=== PATIENT | female | born 1950 | race Caucasian/White ===

== ENCOUNTER → 2019-04-22 | Outpatient (CLI) | payer MEDICARE, OTHER | END | disposition home or self-care (01) | LOC: CFH 10:03 | PROVIDERS: ATTEND Nurse Practitioner | DX: Z13.820 Encounter for screening for osteoporosis (principal); N95.8 Other specified menopausal and perimenopausal disorders | CPT/HCPCS: 77080 ==

== ENCOUNTER 2020-01-14 09:44 | Emergency (ER) | payer MEDICARE, OTHER ==
[~2020-01-14] VITALS: Ht 152.4 cm; Wt 71.2 kg
--- NOTE | 2020-01-14 10:28 | NUR ---
TASK RN. PT AND PT'S STATES PT WITH INCREASING HALLUCONATIONS, WORSE AT NIGHT, X3 MONTHS. PT ALSO STATES WORSENING FORGETFULLNESS WELL. PT DENIES ANY N/T, WEAKNESS. CURRENTLY, PT A&OX4, ABLE TO FOLLOW ALL COMMANDS AND ANSWERS QUESTIONS APPROPRIATELY. JENNIFER RESIDENT AT BEDSIDE FOR ASSESSMENT.
--- NOTE | 2020-01-14 11:02 | NUR ---
RECEIVED REPORT FROM SHOSHANA Mccoy RN. PT TO GET MRI AND LABS.
[2020-01-14 11:15] LABS: MICROSCOPIC INDICATED
[2020-01-14 11:22] LABS: BASOPHILS # (AUTO) 0.04 x10^3/uL (0-0.1); BASOPHILS % (AUTO) 1 % (0-1); EOSINOPHILS # (AUTO) 0.12 x10^3/uL (0-0.4); EOSINOPHILS % (AUTO) 1 % (1-7); LYMPHOCYTES # (AUTO) 1.41 x10^3/uL (1-3.4); LYMPHOCYTES % (AUTO) 16 % (22-44); MD NO; MEAN CORPUSCULAR HGB CONC 33.1 g/dL (32.4-35.8); MEAN PLATELET VOLUME 9.4 fL (7.4-10.4); MONOCYTES # (AUTO) 0.73 x10^3/uL (0.2-0.8); MONOCYTES % (AUTO) 9 % (2-9); NEUTROPHILS # (AUTO) 6.34 x10^3/uL (1.8-6.8); NEUTROPHILS % (AUTO) 73 % (42-75); PLATELET COUNT 210 x10^3/uL (130-400); RED BLOOD COUNT 4.84 x10^6/uL (3.82-5.3)
--- NOTE | 2020-01-14 11:28 | NUR ---
PT IN MRI.
[2020-01-14 11:32] LABS: ALANINE AMINOTRANSFERASE 57 U/L (12-78); ALBUMIN 3.3 g/dL (3.4-5.0); ANION GAP 7 mmol/L (5-15); CALCIUM 11.6 mg/dL (8.5-10.1); CHLORIDE 103 mmol/L (98-107)
[2020-01-14 11:34] LABS: ALKALINE PHOSPHATASE 132 U/L (45-117); BILIRUBIN,TOTAL 0.5 mg/dL (0.2-1.0); CREATININE 0.94 mg/dL (0.55-1.02); TOTAL PROTEIN 7.9 g/dL (6.4-8.2)
[2020-01-14] MEDS ORDERED: GADOTERATE 7.5 MMOL/15 ML SYR ONE (11:44)
[2020-01-14] MEDS ORDERED: POTASSIUM CHLORIDE 20 MEQ TAB.ER.PRT PO ONE (12:30)
[2020-01-14] MEDS ORDERED: POTASSIUM CHLORIDE 20 MEQ TAB.ER.PRT ONE (12:33)
[2020-01-14 13:44] VITALS: BP 143/85
== END 2020-01-14 13:46 | disposition home or self-care (01) ==
LOC: ED 10:42
DX: R44.0 Auditory hallucinations (principal); R44.1 Visual hallucinations; I10 Essential (primary) hypertension
CPT/HCPCS: 36415; 70553; 80053; 81001; 85025; 87086; 99284; A9575

== ENCOUNTER 2020-03-16 09:26 | Observation (INO) | payer MEDICARE, OTHER ==
[~2020-03-16] VITALS: Ht 152.4 cm; Wt 67.2 kg
[2020-03-16] MEDS ORDERED: SODIUM CHLORIDE FLUSH 10ML SYR IVF ONE (10:00)
--- NOTE | 2020-03-16 10:08 | NUR ---
PT HAS MULTIPLE COMPLAINTS. INCREASED WEAKNESS, UNABLE TO EAT MUCH. INCREASED OXYGEN USE AT HOME W ACTIVITY. DENIES CP AT THIS TIME. PT IS SUPPOSED TO GET EGD AND COLONSCOPY, FAMILY MEMBER STATES SHE NEEDS ONE SOONER TO FIND OUT WHAT IS GOING ON.
[2020-03-16 10:39] LABS: BASOPHILS # (AUTO) 0.03 x10^3/uL (0-0.1); BASOPHILS % (AUTO) 0 % (0-1); EOSINOPHILS # (AUTO) 0.14 x10^3/uL (0-0.4); EOSINOPHILS % (AUTO) 2 % (1-7); LYMPHOCYTES # (AUTO) 1.64 x10^3/uL (1-3.4); LYMPHOCYTES % (AUTO) 26 % (22-44); MD NO; MEAN CORPUSCULAR HEMOGLOBIN 31.1 pg (27.0-34.8); MEAN PLATELET VOLUME 9.3 fL (7.4-10.4); MONOCYTES # (AUTO) 0.49 x10^3/uL (0.2-0.8); MONOCYTES % (AUTO) 8 % (2-9); NEUTROPHILS # (AUTO) 3.93 x10^3/uL (1.8-6.8); NEUTROPHILS % (AUTO) 63 % (42-75); PLATELET COUNT 205 x10^3/uL (130-400); RED BLOOD COUNT 4.54 x10^6/uL (3.82-5.3); RED CELL DISTRIBUTION WIDTH 14.8 % (9.6-15.2)
[2020-03-16 10:46] LABS: ALANINE AMINOTRANSFERASE 29 U/L (12-78); ALBUMIN 3.2 g/dL (3.4-5.0); ANION GAP 8 mmol/L (5-15); CALCIUM 11.7 mg/dL (8.5-10.1); CHLORIDE 109 mmol/L (98-107); CREATININE 0.96 mg/dL (0.55-1.02)
[2020-03-16 10:48] LABS: ALKALINE PHOSPHATASE 111 U/L (45-117); BILIRUBIN,TOTAL 1.1 mg/dL (0.2-1.0); TOTAL PROTEIN 7.8 g/dL (6.4-8.2)
--- NOTE | 2020-03-16 11:14 | NUR ---
PT RESTING, VSS
--- NOTE | 2020-03-16 12:08 | NUR ---
PT NOT IN DISTRES, SITTING COMFORTABLE, PLAN FOR ADMIT
[2020-03-16] MEDS ORDERED: ACETAMINOPHEN 325 MG TABLET PO PRN (12:30)
[2020-03-16] MEDS ORDERED: METOCLOPRAMIDE 5 MG/ML, 2ML IVPush PRN (12:30)
[2020-03-16] MEDS ORDERED: OMEPRAZOLE 20 MG CAPSULE.DR PO ONE (12:30)
[2020-03-16] MEDS ORDERED: ONDANSETRON 2MG/ML, 2ML IVPush PRN (12:30)
[2020-03-16] MEDS ORDERED: MELATONIN 5 MG TABLET PO PRN (12:30)
[2020-03-16] MEDS ORDERED: HYDR25TA6 PO (12:39)
[2020-03-16] MEDS ORDERED: PARO30TA45 PO (12:39)
[2020-03-16] MEDS: POTASSIUM CHLORIDE 40 MEQ in LACTATED RINGERS 1,000 ML IV SCH ×2 (13:00→23:13)
--- NOTE | 2020-03-16 14:05 | NUR ---
PT RESTING, VSS. GIVEN WATER. CLEAR LIQUID DIET PER ORDERS,
--- NOTE | 2020-03-16 14:35 | NUR ---
PT AMBULATED TO BATHROOM W STEADY GAIT
--- NOTE | 2020-03-16 14:56 | NUR ---
PT RA SAT AFTER AMBULATING 73. 2L APPLIED, NOW 92
--- NOTE | 2020-03-16 15:50 | NUR ---
ASSUMING CARE OF PT. PT ASLEEP IN BED, NAD NOTED AT THIS TIME. RESPIRATIONS EVEN AND UNLABORED SATURATING WELL. AWAITING ADMISSION BED. CALL MADE FOR HOSPITAL BED.
--- NOTE | 2020-03-16 16:32 | NUR ---
FIRST ATTEMPT TO CALL REPORT.
--- NOTE | 2020-03-16 16:56 | NUR ---
SECOND CALL TO TELE2 FOR REPORT.
[2020-03-16] MEDS ORDERED: OMEPRAZOLE 20 MG CAPSULE.DR ONE (19:56)
[2020-03-16 21:20] VITALS: BP 181/71
[2020-03-16] MEDS: ENALAPRILAT 1.25 MG/ML, 2ML IV PRN (22:23)
[2020-03-16 23:13] VITALS: BP 169/78
[2020-03-17 01:47] VITALS: BP 176/69
[2020-03-17 02:35] VITALS: BP 184/77
[2020-03-17] MEDS: ENALAPRILAT 1.25 MG/ML, 2ML IV PRN ×2 (02:38→07:21)
[2020-03-17 03:12] VITALS: BP 176/83
[2020-03-17 03:21] VITALS: BP 164/73
[2020-03-17 06:01] LABS: BASOPHILS # (AUTO) 0.03 x10^3/uL (0-0.1); BASOPHILS % (AUTO) 0 % (0-1); EOSINOPHILS # (AUTO) 0.24 x10^3/uL (0-0.4); EOSINOPHILS % (AUTO) 3 % (1-7); LYMPHOCYTES # (AUTO) 2.23 x10^3/uL (1-3.4); LYMPHOCYTES % (AUTO) 24 % (22-44); MD NO; MEAN CORPUSCULAR HEMOGLOBIN 30.8 pg (27.0-34.8); MEAN PLATELET VOLUME 9.6 fL (7.4-10.4); MONOCYTES # (AUTO) 0.95 x10^3/uL (0.2-0.8); MONOCYTES % (AUTO) 10 % (2-9); NEUTROPHILS # (AUTO) 5.99 x10^3/uL (1.8-6.8); NEUTROPHILS % (AUTO) 64 % (42-75); PLATELET COUNT 199 x10^3/uL (130-400); RED BLOOD COUNT 4.13 x10^6/uL (3.82-5.3)
[2020-03-17 06:25] LABS: ALBUMIN 2.9 g/dL (3.4-5.0); ANION GAP 7 mmol/L (5-15); CALCIUM 10.9 mg/dL (8.5-10.1); CHLORIDE 111 mmol/L (98-107)
[2020-03-17 06:29] LABS: ALANINE AMINOTRANSFERASE 28 U/L (12-78); ALKALINE PHOSPHATASE 98 U/L (45-117); BILIRUBIN,TOTAL 1.1 mg/dL (0.2-1.0); CREATININE 0.83 mg/dL (0.55-1.02); TOTAL PROTEIN 7.1 g/dL (6.4-8.2)
[2020-03-17 07:01] VITALS: BP 171/78
[2020-03-17 07:43] VITALS: BP 166/74
[2020-03-17] MEDS ORDERED: CHLORHEXIDINE 15 ML UDC ONE (08:39)
[2020-03-17] MEDS ORDERED: POTA20TA14 PO (08:53)
[2020-03-17] MEDS ORDERED: CHLORHEXIDINE 15 ML UDC MM STA (08:55)
[2020-03-17] MEDS ORDERED: PROPOFOL 10 MG/ML, 20ML ONE (09:00)
[2020-03-17] MEDS ORDERED: FENTANYL PF 100 MCG/2ML ONE (09:00)
[2020-03-17] MEDS ORDERED: PAROXETINE 10 MG TABLET PO SCH (09:00)
[2020-03-17] MEDS ORDERED: MIDAZOLAM 1 MG/ML, 2ML ONE (09:00)
[2020-03-17] MEDS ORDERED: POTASSIUM CHLORIDE 40 MEQ in SODIUM CHLORIDE 0.9% 500 ML IV ONE (09:00)
[2020-03-17] MEDS ORDERED: MEPERIDINE/PF 25MG/0.5ML IVPush PRN (09:30)
[2020-03-17] MEDS ORDERED: PROMETHAZINE 25 MG/ML, 1ML IVPush PRN (09:30)
[2020-03-17] MEDS ORDERED: ONDANSETRON 2MG/ML, 2ML IVPush PRN (09:30)
[2020-03-17] MEDS ORDERED: FENTANYL PF 100 MCG/2ML IV PRN (09:30)
[2020-03-17] MEDS ORDERED: OXYcodone 5 MG/5 ML ORAL.SOL UDC PO PRN (09:30)
[2020-03-17] MEDS ORDERED: HYDROmorphone 1 MG/ML, 1ML INJ IVPush PRN (09:30)
[2020-03-17] MEDS ORDERED: OMEP20TA62 PO (10:16)
[2020-03-17] MEDS ORDERED: EPHEDRINE 50 MG/ML, 1ML ONE (11:21)
[2020-03-17] MEDS ORDERED: ONDANSETRON 2MG/ML, 2ML ONE (11:21)
== END 2020-03-17 15:00 | disposition home or self-care (01) ==
LOC: ED 09:42 → SUATTDRO 12:12 → EDIP 12:20 → 4WST 17:51 → DCLOUNGE 03-17 14:54
PROVIDERS: ADMIT Internal Medicine; ATTEND Hospitalist
DX: K29.70 Gastritis, unspecified, without bleeding (principal); Z20.828 Contact with and (suspected) exposure to other viral communicable diseases; K57.30 Diverticulosis of large intestine without perforation or abscess without bleeding; R11.2 Nausea with vomiting, unspecified; K44.9 Diaphragmatic hernia without obstruction or gangrene; K22.2 Esophageal obstruction; E87.6 Hypokalemia; I10 Essential (primary) hypertension; J84.10 Pulmonary fibrosis, unspecified; Z87.01 Personal history of pneumonia (recurrent)
CPT/HCPCS: 36415; 43239; 71045; 80053; 82378; 83690; 83735; 84100; 84443; 85025; 86301; 87635; 88305; 88312; 93005; 96365; 96366; 96375; 96376; 99284; G0378; J2250; J2405; J2704; J3010; J3480; J7040; J7120

== ENCOUNTER → 2020-04-28 | Outpatient (CLI) | payer MEDICARE, OTHER ==
[~2020-04-28] MED LIST: HYDR25TA6 PO; OMEP20TA62 PO; PARO30TA45 PO; POTA20TA14 PO
== END | disposition home or self-care (01) ==
LOC: CARD 12:39
PROVIDERS: ATTEND Nurse Practitioner Family
DX: R41.3 Other amnesia (principal); R44.0 Auditory hallucinations; R44.1 Visual hallucinations
CPT/HCPCS: 95819

== ENCOUNTER 2020-10-01 16:54 | Inpatient (IN) | payer MEDICARE, OTHER ==
[~2020-10-01] VITALS: Ht 152.4 cm; Wt 48.9 kg
--- NOTE | 2020-10-01 17:15 | NUR ---
ERPA AT BEDSIDE FOR EVALUATION.
--- NOTE | 2020-10-01 17:48 | NUR ---
CC OFCOUGH FOR ABOUT 2 WEEKS AND PASSING OUT EPISODES THAT HAS BEEN GOING ON FOR MONTHS. C/O NAUSEA, LOSING WEIGHT AND DECREASED APPETITE. FOLLOWED BY NEURO. AT BEDSIDE.
[2020-10-01 17:56] LABS: BASOPHILS % (AUTO) 1 % (0-1); EOSINOPHILS % (AUTO) 2 % (1-7); LYMPHOCYTES % (AUTO) 24 % (22-44); MEAN CORPUSCULAR HEMOGLOBIN 31.6 pg (27.0-34.8); MEAN CORPUSCULAR HGB CONC 33.1 g/dL (32.4-35.8); MEAN PLATELET VOLUME 9.2 fL (7.4-10.4); MONOCYTES % (AUTO) 11 % (2-9); NEUTROPHILS % (AUTO) 63 % (42-75); PLATELET COUNT 243 x10^3/uL (130-400); RED BLOOD COUNT 3.88 x10^6/uL (3.82-5.3); RED CELL DISTRIBUTION WIDTH 13.7 % (9.6-15.2)
[2020-10-01 18:01] LABS: MD NO
[2020-10-01 18:15] LABS: ALANINE AMINOTRANSFERASE 24 U/L (12-78); ANION GAP 5 mmol/L (5-15); CALCIUM 13.3 mg/dL (8.5-10.1); CHLORIDE 109 mmol/L (98-107); CREATININE 0.96 mg/dL (0.55-1.02)
[2020-10-01 18:18] LABS: ALKALINE PHOSPHATASE 105 U/L (45-117); BILIRUBIN,TOTAL 0.7 mg/dL (0.2-1.0); TOTAL PROTEIN 7.7 g/dL (6.4-8.2); TROPONIN I 0.043 ng/mL (0.000-0.045)
[2020-10-01 18:34] LABS: MICROSCOPIC AUTO
[2020-10-01] MEDS ORDERED: CEFTRIAXONE PMX 1GM/50ML 50 ML IVPB ONE (19:00)
[2020-10-01] MEDS ORDERED: SODIUM CHLORIDE 0.9% 1,000 ML IV ONE (19:00)
[2020-10-01] MEDS ORDERED: AZITHROMYCIN 500 MG in SODIUM CHLORIDE 0.9% 250 ML IVPB ONE (19:00)
[2020-10-01] MEDS ORDERED: CEFTRIAXONE PMX 1GM/50ML 50 ML ONE (19:14)
[2020-10-01] MEDS ORDERED: POLYETHYLENE GLYCOL 17 GM PACKET PO PRN (20:00)
[2020-10-01] MEDS ORDERED: ONDANSETRON ODT 4 MG PO PRN (20:00)
[2020-10-01] MEDS ORDERED: BISACODYL 10 MG SUPP PR PRN (20:00)
[2020-10-01] MEDS ORDERED: ACETAMINOPHEN 325 MG TABLET PO PRN (20:00)
--- NOTE | 2020-10-01 20:05 | NUR ---
LEFT, TOOK PTS HOME OXYGEN WITH HIM.
--- NOTE | 2020-10-01 20:09 | NUR ---
REPORT GIVEN TO SUMI GUNN
[2020-10-01 21:02] VITALS: BP 127/76
[2020-10-01] MEDS: CEFTRIAXONE PMX 1GM/50ML 50 ML IV SCH (21:10)
[2020-10-01] MEDS: HEPARIN 5,000 UNITS/ML, 1ML SQ SCH (21:25)
[2020-10-01] MEDS: SODIUM CHLORIDE 0.9% 1,000 ML IV SCH (23:01)
[2020-10-02 01:47] VITALS: BP 132/69
[2020-10-02] MEDS: HEPARIN 5,000 UNITS/ML, 1ML SQ SCH ×3 (05:36→21:22)
[2020-10-02] MEDS: OMEPRAZOLE 20 MG CAPSULE.DR PO SCH (05:36)
[2020-10-02 06:53] LABS: ANION GAP 7 mmol/L (5-15); CALCIUM 11.8 mg/dL (8.5-10.1); CHLORIDE 111 mmol/L (98-107); CREATININE 0.81 mg/dL (0.55-1.02)
[2020-10-02 08:40] VITALS: BP 104/59
[2020-10-02] MEDS: SENNA/DOCUSATE TABLET PO SCH (09:00)
[2020-10-02] MEDS ORDERED: PAROXETINE 20 MG TABLET ONE (09:19)
[2020-10-02] MEDS: HYDROCHLOROTHIAZIDE 25 MG TABLET PO SCH (09:24)
[2020-10-02] MEDS: POTASSIUM CHLORIDE 20 MEQ TAB.ER.PRT PO SCH (09:25)
[2020-10-02] MEDS: SODIUM CHLORIDE 0.9% 1,000 ML IV SCH ×2 (09:26→18:56)
[2020-10-02] MEDS: PAROXETINE 10 MG TABLET PO SCH (09:37)
[2020-10-02 12:48] VITALS: BP 128/65
[2020-10-02 19:51] VITALS: BP 158/80
[2020-10-02] MEDS: CEFTRIAXONE PMX 1GM/50ML 50 ML IV SCH (19:53)
[2020-10-02] MEDS ORDERED: AZITHROMYCIN 500 MG in SODIUM CHLORIDE 0.9% 250 ML IV SCH (20:00)
[2020-10-03 01:22] VITALS: BP 175/74
[2020-10-03 01:41] VITALS: BP 142/71
[2020-10-03] MEDS: HEPARIN 5,000 UNITS/ML, 1ML SQ SCH (05:42)
[2020-10-03] MEDS: OMEPRAZOLE 20 MG CAPSULE.DR PO SCH (05:42)
[2020-10-03 05:43] LABS: BASOPHILS % (AUTO) 1 % (0-1); EOSINOPHILS % (AUTO) 2 % (1-7); LYMPHOCYTES % (AUTO) 26 % (22-44); MEAN CORPUSCULAR HEMOGLOBIN 31.4 pg (27.0-34.8); MEAN CORPUSCULAR HGB CONC 33.4 g/dL (32.4-35.8); MONOCYTES % (AUTO) 9 % (2-9); NEUTROPHILS % (AUTO) 63 % (42-75); PLATELET COUNT 208 x10^3/uL (130-400); RED CELL DISTRIBUTION WIDTH 13.4 % (9.6-15.2)
[2020-10-03] MEDS: SODIUM CHLORIDE 0.9% 1,000 ML IV SCH (05:43)
[2020-10-03 05:50] LABS: MD NO
[2020-10-03 05:52] LABS: ANION GAP 7 mmol/L (5-15); CALCIUM 10.9 mg/dL (8.5-10.1); CHLORIDE 108 mmol/L (98-107)
[2020-10-03 05:54] LABS: CREATININE 0.64 mg/dL (0.55-1.02)
[2020-10-03] MEDS ORDERED: AZIT500T10 PO (07:03)
[2020-10-03 07:44] VITALS: BP 132/76
[2020-10-03] MEDS: POTASSIUM CHLORIDE 20 MEQ TAB.ER.PRT PO SCH (08:03)
[2020-10-03] MEDS: HYDROCHLOROTHIAZIDE 25 MG TABLET PO SCH (08:03)
[2020-10-03] MEDS: SENNA/DOCUSATE TABLET PO SCH (08:04)
[2020-10-03] MEDS: PAROXETINE 10 MG TABLET PO SCH (08:04)
== END 2020-10-03 11:08 | disposition home or self-care (01) | DRG 689 ==
LOC: ED 18:40 → EDIP 19:45 → 3N 20:25 → DCLOUNGE 10-03 11:00
PROVIDERS: ADMIT Family Medicine; ATTEND Hospitalist
PROC: 0T9B70Z Drainage of Bladder with Drainage Device, Via Natural or Artificial Opening (ICD-10-PCS; principal; 2020-10-01)
DX: N39.0 Urinary tract infection, site not specified (principal); J18.9 Pneumonia, unspecified organism; F03.90 Unspecified dementia, unspecified severity, without behavioral disturbance, psychotic disturbance, mood disturbance, and anxiety; J84.10 Pulmonary fibrosis, unspecified; K44.9 Diaphragmatic hernia without obstruction or gangrene; B96.89 Other specified bacterial agents as the cause of diseases classified elsewhere; E78.5 Hyperlipidemia, unspecified; E83.52 Hypercalcemia; F41.1 Generalized anxiety disorder; I10 Essential (primary) hypertension; Z66 Do not resuscitate; Z80.0 Family history of malignant neoplasm of digestive organs; Z81.8 Family history of other mental and behavioral disorders; Z82.49 Family history of ischemic heart disease and other diseases of the circulatory system; Z86.711 Personal history of pulmonary embolism; Z86.73 Personal history of transient ischemic attack (TIA), and cerebral infarction without residual deficits; Z99.81 Dependence on supplemental oxygen; Z91.040 Latex allergy status; Z91.048 Other nonmedicinal substance allergy status; R55 Syncope and collapse
CPT/HCPCS: 36415; 70450; 71045; 80048; 80053; 81001; 82306; 82330; 83880; 83970; 84484; 85025; 87040; 87077; 87086; 87186; 93005; 96365; G0378; J0456; J0696; J1644; J7030; J7050